=== PATIENT | female | born 1940 | race Caucasian/White ===

== ENCOUNTER → 2016-12-23 | Outpatient (CLI) | payer MEDICARE, SELFPAY ==
[~2016-12-23] MED LIST: CELEXA 20MG TAB20 MG PO; ELIQUIS5 MG PO; IMDUR ER TAB 6060 MG PO; LASIX20 MG PO; LEVAQUIN500 MG PO; LEVSIN TAB 00.125 MG PO; LOSARTAN-HCTZ1 EAC1 PO; NOVOLOG 10100 UNITS1 INJ; PRAVASTATIN SOD40 MG PO; PRILOSEC OTC20 MG PO; RANEXA500 MG PO; TOPROL XL 25 MG25 MG PO; TOUJEO SQ; TYLENOL W/CODEIN1 E1 PO
== END ==
LOC: ECHO 12-22 12:30
DX: I25.10 Atherosclerotic heart disease of native coronary artery without angina pectoris (principal); I49.5 Sick sinus syndrome; I50.32 Chronic diastolic (congestive) heart failure; I35.0 Nonrheumatic aortic (valve) stenosis
CPT/HCPCS: ECHO; 93306

== ENCOUNTER → 2016-12-27 | Outpatient (CLI) | payer MEDICARE, SELFPAY ==
[2016-12-27 13:39] LABS: HEMOGLOBIN 11.2 gm/dl (12.3-15.3); RED BLOOD COUNT 3.94 M/UL (4.00-5.10); WHITE BLOOD COUNT 9.9 K/UL (4.5-11.0)
== END ==
LOC: LAB 12:44
PROVIDERS: Internal Medicine Cardiovascular Disease
DX: Z45.010 Encounter for checking and testing of cardiac pacemaker pulse generator [battery] (principal); I49.5 Sick sinus syndrome; I25.10 Atherosclerotic heart disease of native coronary artery without angina pectoris; I11.0 Hypertensive heart disease with heart failure; I50.32 Chronic diastolic (congestive) heart failure
CPT/HCPCS: 36415; 71020; 80048; 85025

== ENCOUNTER → 2016-12-29 | Outpatient (CLI) | payer MEDICARE, SELFPAY ==
[~2016-12-29] VITALS: Ht 167.6 cm; Wt 61.7 kg
== END ==
LOC: CATH 07:04
DX: Z45.010 Encounter for checking and testing of cardiac pacemaker pulse generator [battery] (principal); T82.110A Breakdown (mechanical) of cardiac electrode, initial encounter; I25.10 Atherosclerotic heart disease of native coronary artery without angina pectoris; I10 Essential (primary) hypertension; E11.9 Type 2 diabetes mellitus without complications; E78.5 Hyperlipidemia, unspecified; Y71.8 Miscellaneous cardiovascular devices associated with adverse incidents, not elsewhere classified; I49.5 Sick sinus syndrome; I50.32 Chronic diastolic (congestive) heart failure; I25.119 Atherosclerotic heart disease of native coronary artery with unspecified angina pectoris; Z95.5 Presence of coronary angioplasty implant and graft; Z95.1 Presence of aortocoronary bypass graft; Z87.891 Personal history of nicotine dependence; Z88.5 Allergy status to narcotic agent; Z88.8 Allergy status to other drugs, medicaments and biological substances; Z79.82 Long term (current) use of aspirin; Z79.4 Long term (current) use of insulin; Z79.899 Other long term (current) drug therapy
CPT/HCPCS: ECHO; 82962; 93306; 99152; 99153; C1785; J1200; J2250; J3010; J3370; J7040; J7050

== ENCOUNTER → 2020-07-23 | Outpatient (CLI) | payer MEDICARE, OTHER ==
[~2020-07-23] MED LIST changes: +ACTOS30 MG PO; +AMOX TR-K CLV1 EAC4 PO; +ASPIRIN CHEWABL81 MG PO; +ASPIRIN EC81 MG PO; +DECADRON6 MG PO; +ELIQUIS 2.5 MG2.5 MG PO; +GLUCOTROL5 MG PO; +LEVEMIR100 UNIT/1 SQ; +LOPRESSOR 25 MG25 MG PO; +NEURONTIN 300300 MG PO; +NORCO 5-325 TA1 EACH PO; +NORVASC2.5 MG PO; +NOVOLOG100 UNIT/1 SQ; -TOPROL XL 25 MG25 MG PO; +ULTRAM50 MG PO; +VIBRAMYCIN100 MG PO
== END ==
LOC: LAB 15:58
PROVIDERS: Internal Medicine Nephrology
DX: N18.30 Chronic kidney disease, stage 3 unspecified (principal)
CPT/HCPCS: 36415; 80053; 82570; 84156

== ENCOUNTER → 2020-10-15 | Outpatient (CLI) | payer OTHER | LOC: LAB 15:37 | PROVIDERS: Internal Medicine Nephrology | DX: N18.30 Chronic kidney disease, stage 3 unspecified (principal) | CPT/HCPCS: 36415; 80053; 82570; 84156 ==

== ENCOUNTER → 2021-01-14 | Outpatient (CLI) | payer OTHER ==
[~2021-01-14] MED LIST changes: +KEFLEX750 MG PO
== END ==
LOC: LAB 14:21
PROVIDERS: Internal Medicine Nephrology
DX: N18.30 Chronic kidney disease, stage 3 unspecified (principal)
CPT/HCPCS: 36415; 80053; 82570; 84156

== ENCOUNTER 2021-03-27 19:20 | Emergency (ER) | payer OTHER ==
[~2021-03-27 19:20] MED LIST changes: -KEFLEX750 MG PO
[2021-03-27 20:03] LABS: HEMOGLOBIN 11.3 gm/dl (12.3-15.3); RED BLOOD COUNT 4.25 M/UL (4.00-5.10); WHITE BLOOD COUNT 7.9 K/UL (4.5-11.0)
[2021-03-27] MEDS ORDERED: ASPIRIN CHEWABL81 MG PO (21:39)
[2021-03-27] MEDS ORDERED: KEFLEX750 MG PO (21:39)
== END 2021-03-27 22:20 | disposition home or self-care (01) ==
LOC: ER1 19:20
PROVIDERS: Family Medicine
DX: L08.9 Local infection of the skin and subcutaneous tissue, unspecified (principal); E11.9 Type 2 diabetes mellitus without complications; I10 Essential (primary) hypertension
CPT/HCPCS: 71045; 73660; 80053; 85025; 85652; 86140; 93005; 99283

== ENCOUNTER → 2021-05-01 | Outpatient (CLI) | payer OTHER ==
[~2021-05-01] MED LIST changes: +KEFLEX750 MG PO
== END ==
LOC: EXRD 04-27 14:00 → US 04-27 14:00 → EXRD 11:15
DX: I73.9 Peripheral vascular disease, unspecified (principal); L97.519 Non-pressure chronic ulcer of other part of right foot with unspecified severity
CPT/HCPCS: 93925

== ENCOUNTER 2021-05-20 07:19 | Inpatient (IN) | payer OTHER ==
[~2021-05-20] VITALS: Ht 170.2 cm; Wt 60.3 kg
[2021-05-20 08:07] LABS: HEMOGLOBIN 10.4 gm/dl (12.3-15.3); RED BLOOD COUNT 4.06 M/UL (4.00-5.10)
[2021-05-21 03:00] LABS: HEMOGLOBIN 9.1 gm/dl (12.3-15.3)
[2021-05-21 03:01] LABS: RED BLOOD COUNT 3.65 M/UL (4.00-5.10); WHITE BLOOD COUNT 8.2 K/UL (4.5-11.0)
[2021-05-22 04:24] LABS: HEMOGLOBIN 8.8 gm/dl (12.3-15.3); RED BLOOD COUNT 3.48 M/UL (4.00-5.10); WHITE BLOOD COUNT 9.2 K/UL (4.5-11.0)
[2021-05-23 02:55] LABS: HEMOGLOBIN 8.8 gm/dl (12.3-15.3); RED BLOOD COUNT 3.51 M/UL (4.00-5.10); WHITE BLOOD COUNT 8.8 K/UL (4.5-11.0)
[2021-05-24 02:53] LABS: HEMOGLOBIN 8.4 gm/dl (12.3-15.3); RED BLOOD COUNT 3.33 M/UL (4.00-5.10); WHITE BLOOD COUNT 10.6 K/UL (4.5-11.0)
[2021-05-25 03:09] LABS: HEMOGLOBIN 8.5 gm/dl (12.3-15.3); RED BLOOD COUNT 3.38 M/UL (4.00-5.10); WHITE BLOOD COUNT 9.6 K/UL (4.5-11.0)
[2021-05-26 04:39] LABS: HEMOGLOBIN 8.6 gm/dl (12.3-15.3); RED BLOOD COUNT 3.46 M/UL (4.00-5.10); WHITE BLOOD COUNT 9.6 K/UL (4.5-11.0)
[2021-05-26] MEDS ORDERED: FERROUS SULFAT325 M2 PO (13:02)
[2021-05-26] MEDS ORDERED: CLOPIDOGREL75 MG PO (13:02)
[2021-05-26] MEDS ORDERED: ELIQUIS 5 MG TAB5 MG PO (13:02)
== END 2021-05-26 14:30 | disposition home health service (06) | DRG 252 ==
LOC: CATH 07:19 → PROG CARE 15:32 → CATH 15:59 → PROG CARE 16:01
PROVIDERS: Internal Medicine Cardiovascular Disease; Podiatrist Foot & Ankle Surgery; ADMIT Internal Medicine
PROC: 047M3Z1 Dilation of Right Popliteal Artery using Drug-Coated Balloon, Percutaneous Approach (ICD-10-PCS; 2021-05-20)
PROC: 4A033B1 Measurement of Arterial Pressure, Peripheral, Percutaneous Approach (ICD-10-PCS; 2021-05-20)
PROC: B44FZZ3 Ultrasonography of Right Lower Extremity Arteries, Intravascular (ICD-10-PCS; 2021-05-20)
PROC: 0Y6V0Z0 Detachment at Right 4th Toe, Complete, Open Approach (ICD-10-PCS; 2021-05-22)
PROC: 0HRMXK3 Replacement of Right Foot Skin with Nonautologous Tissue Substitute, Full Thickness, External Approach (ICD-10-PCS; principal; 2021-05-22 16:00)
PROC: 02HV33Z Insertion of Infusion Device into Superior Vena Cava, Percutaneous Approach (ICD-10-PCS; 2021-05-25)
PROC: B548ZZA Ultrasonography of Superior Vena Cava, Guidance (ICD-10-PCS; 2021-05-25)
DX: E11.52 Type 2 diabetes mellitus with diabetic peripheral angiopathy with gangrene (principal); A48.0 Gas gangrene; I44.2 Atrioventricular block, complete; L03.115 Cellulitis of right lower limb; Z20.822 Contact with and (suspected) exposure to COVID-19; I13.0 Hypertensive heart and chronic kidney disease with heart failure and stage 1 through stage 4 chronic kidney disease, or unspecified chronic kidney disease; I50.32 Chronic diastolic (congestive) heart failure; M86.8X7 Other osteomyelitis, ankle and foot; E78.5 Hyperlipidemia, unspecified; N18.30 Chronic kidney disease, stage 3 unspecified; I25.10 Atherosclerotic heart disease of native coronary artery without angina pectoris; E11.22 Type 2 diabetes mellitus with diabetic chronic kidney disease; F17.210 Nicotine dependence, cigarettes, uncomplicated; K58.9 Irritable bowel syndrome, unspecified; I48.91 Unspecified atrial fibrillation; L97.519 Non-pressure chronic ulcer of other part of right foot with unspecified severity; I49.5 Sick sinus syndrome; I08.3 Combined rheumatic disorders of mitral, aortic and tricuspid valves; I27.20 Pulmonary hypertension, unspecified; E78.00 Pure hypercholesterolemia, unspecified; M06.9 Rheumatoid arthritis, unspecified; E11.621 Type 2 diabetes mellitus with foot ulcer; Z96.1 Presence of intraocular lens; E11.628 Type 2 diabetes mellitus with other skin complications; D63.1 Anemia in chronic kidney disease; Z79.4 Long term (current) use of insulin; I82.401 Acute embolism and thrombosis of unspecified deep veins of right lower extremity; Z95.0 Presence of cardiac pacemaker; Z79.01 Long term (current) use of anticoagulants; Z86.010 Personal history of colon polyps; Z86.39 Personal history of other endocrine, nutritional and metabolic disease; Z95.5 Presence of coronary angioplasty implant and graft; Z95.1 Presence of aortocoronary bypass graft; Z98.890 Other specified postprocedural states; Z88.8 Allergy status to other drugs, medicaments and biological substances; Z79.82 Long term (current) use of aspirin; Z98.42 Cataract extraction status, left eye; Z98.41 Cataract extraction status, right eye; Z90.710 Acquired absence of both cervix and uterus; Z82.49 Family history of ischemic heart disease and other diseases of the circulatory system; Z82.62 Family history of osteoporosis; Z83.3 Family history of diabetes mellitus; Z81.1 Family history of alcohol abuse and dependence; Z82.61 Family history of arthritis; Z82.5 Family history of asthma and other chronic lower respiratory diseases
CPT/HCPCS: 36415; 36600; 71045; 73630; 75630; 80048; 80202; 82550; 82962; 83036; 83540; 83550; 83605; 83735; 85025; 85027; 85347; 85610; 85652; 85730; 86140; 87040; 87070; 87077; 87186; 87205; 93005; 99152; 99153; C1725; C1894; C2623; J1100; J1335; J1644; J2185; J2250; J2270; J2405; J2704; J2795; J3010; J3370; J7030; J7040; J7050; J7120; Q4133; Q9965

== ENCOUNTER → 2021-06-02 | Outpatient (CLI) | payer OTHER ==
[~2021-06-02] MED LIST changes: +CLOPIDOGREL75 MG PO; +ELIQUIS 5 MG TAB5 MG PO; +FERROUS SULFAT325 M2 PO; +LIDOCAINE1 EAC1 TP
[2021-06-02 17:58] LABS: HEMOGLOBIN 9.4 gm/dl (12.3-15.3); RED BLOOD COUNT 3.83 M/UL (4.00-5.10); WHITE BLOOD COUNT 7.7 K/UL (4.5-11.0)
== END ==
LOC: LBRF 17:36 → VNA 17:36
PROVIDERS: Podiatrist Foot & Ankle Surgery
DX: Z79.2 Long term (current) use of antibiotics (principal)
CPT/HCPCS: 80053; 85025; 85652; 86140

== ENCOUNTER 2021-06-03 12:23 | Emergency (ER) | payer OTHER ==
[~2021-06-03 12:23] MED LIST changes: -LIDOCAINE1 EAC1 TP
[2021-06-03 14:59] LABS: RED BLOOD COUNT 3.97 M/UL (4.00-5.10)
[2021-06-03] MEDS ORDERED: LIDOCAINE1 EAC1 TP (16:07)
== END 2021-06-03 16:30 | disposition home or self-care (01) ==
LOC: ER1 12:23
PROVIDERS: Emergency Medicine
DX: S22.31XA Fracture of one rib, right side, initial encounter for closed fracture (principal); I50.9 Heart failure, unspecified; I48.91 Unspecified atrial fibrillation; E11.9 Type 2 diabetes mellitus without complications; Z95.0 Presence of cardiac pacemaker; W19.XXXA Unspecified fall, initial encounter
CPT/HCPCS: 70450; 71250; 72128; 72131; 80053; 81001; 82550; 82553; 83874; 84484; 85025; 93005; 99284

== ENCOUNTER 2021-06-06 12:30 | Emergency (ER) | payer OTHER ==
[~2021-06-06 12:30] MED LIST changes: -LASIX20 MG PO; +LASIX40 MG PO; +LIDOCAINE1 EAC1 TP; -NORVASC2.5 MG PO
[2021-06-06 13:34] LABS: HEMOGLOBIN 9.2 gm/dl (12.3-15.3); RED BLOOD COUNT 3.66 M/UL (4.00-5.10); WHITE BLOOD COUNT 8.3 K/UL (4.5-11.0)
[2021-06-06 13:53] LABS: BUN/CREATININE RATIO 23 (0-10)
[2021-06-06] MEDS ORDERED: AUGMENTIN 875-1 EACH PO (15:11)
[2021-06-06] MEDS ORDERED: CATAPRES 0.1MG0.1 MG PO (17:54)
[2021-06-06] MEDS ORDERED: ASPIRIN CHEWABL81 MG PO (17:54)
[2021-06-06] MEDS ORDERED: ZYRTEC10 M3 PO (17:54)
[2021-06-06] MEDS ORDERED: BACLOFEN10 MG PO (17:54)
[2021-06-06] MEDS ORDERED: FLONASE 0.05% N16 GM (17:54)
== END 2021-06-06 15:56 | disposition home or self-care (01) ==
LOC: ER1 12:30
PROVIDERS: Emergency Medicine
DX: R44.3 Hallucinations, unspecified (principal); T40.605A Adverse effect of unspecified narcotics, initial encounter; T36.95XA Adverse effect of unspecified systemic antibiotic, initial encounter; R41.0 Disorientation, unspecified; I48.91 Unspecified atrial fibrillation; E11.9 Type 2 diabetes mellitus without complications; Z95.1 Presence of aortocoronary bypass graft; Z90.49 Acquired absence of other specified parts of digestive tract; Z89.429 Acquired absence of other toe(s), unspecified side
CPT/HCPCS: 80053; 80307; 81001; 82140; 82550; 82553; 83874; 84484; 85025; 96374; 99284; J0295; J0696

== ENCOUNTER 2021-06-06 17:32 | Inpatient (IN) | payer OTHER ==
[~2021-06-06] VITALS: Ht 160 cm; Wt 58.0 kg
[~2021-06-06 17:32] MED LIST changes: +AUGMENTIN 875-1 EACH PO
[2021-06-06] MEDS ORDERED: CATAPRES 0.1MG0.1 MG PO (17:54)
[2021-06-06] MEDS ORDERED: ASPIRIN CHEWABL81 MG PO (17:54)
[2021-06-06] MEDS ORDERED: BACLOFEN10 MG PO (17:54)
[2021-06-06] MEDS ORDERED: ZYRTEC10 M3 PO (17:54)
[2021-06-06] MEDS ORDERED: FLONASE 0.05% N16 GM (17:54)
[2021-06-06 18:02] LABS: HEMOGLOBIN 9.5 gm/dl (12.3-15.3); RED BLOOD COUNT 3.76 M/UL (4.00-5.10); WHITE BLOOD COUNT 7.1 K/UL (4.5-11.0)
[2021-06-06 18:32] LABS: BUN/CREATININE RATIO 24 (0-10)
[2021-06-07 08:16] LABS: HEMOGLOBIN 8.8 gm/dl (12.3-15.3); RED BLOOD COUNT 3.61 M/UL (4.00-5.10); WHITE BLOOD COUNT 7.8 K/UL (4.5-11.0)
[2021-06-08 07:11] LABS: HEMOGLOBIN 8.6 gm/dl (12.3-15.3); RED BLOOD COUNT 3.42 M/UL (4.00-5.10); WHITE BLOOD COUNT 7.8 K/UL (4.5-11.0)
[2021-06-08] MEDS ORDERED: NOVOLOG FL100 UNIT/1 SQ (15:27)
[2021-06-08] MEDS ORDERED: LOSARTAN POTASS50 MG PO (15:28)
[2021-06-08] MEDS ORDERED: ELIQUIS5 MG PO (15:28)
[2021-06-08] MEDS ORDERED: NORVASC2.5 MG PO (16:04)
[2021-06-09 09:16] LABS: HEMOGLOBIN 8.5 gm/dl (12.3-15.3); RED BLOOD COUNT 3.36 M/UL (4.00-5.10); WHITE BLOOD COUNT 7.5 K/UL (4.5-11.0)
--- NOTE | 2021-06-09 15:29 | NUR ---
PATIENT RETURNED FROM PROCEDURE, SURGICAL VITALS BEGAN PER POLICY. PATIENT STILL APPEARS TO BE LETHARGIC BUT RESPONDS TO TACTILE STIMULI. NO S/SX OF PAIN OR DISTRESS AT PRESENT. BED LOCKED AND LOW. CALL LIGHT WITHIN REACH. RN NOTED RADIOLOGIST MADE A WRITTEN ORDER TO KEEP PATIENT SUPINE FOR TWO HOURS POSTOP AND ENCOURAGE PO FLUIDS.
[2021-06-09 15:35] LABS: CRYPTOCOCCUS NEOFORMANS/GATTII Not Detected (Negative); CYTOMEGALOVIRUS Not Detected (Negative); ENTEROVIRUS Not Detected (Negative); ESCHERICHIA COLI K1 Not Detected (Negative); HAEMOPHILUS INFLUENZAE Not Detected (Negative); HERPES SIMPLEX VIRUS 1 Not Detected (Negative); HERPES SIMPLEX VIRUS 2 Not Detected (Negative); HUMAN HERPESVIRUS 6 Not Detected (Negative); HUMAN PARECHOVIRUS Not Detected (Negative); LISTERIA MONOCYTOGENES Not Detected (Negative); NEISERRIA MENINGITIDIS Not Detected (Negative); STREPTOCOCCUS AGALACTIAE Not Detected (Negative); STREPTOCOCCUS PNEUMONIAE Not Detected (Negative); VARICELLA ZOSTER VIRUS Not Detected (Negative)
[2021-06-09 16:11] LABS: GLUCOSE,CSF 169 mg/dL (50-80); TOTAL PROTEIN,CSF 54 mg/dL (20-45)
[2021-06-09 16:14] LABS: RBC (AUTOMATED) 1 10^6 (0); WBC (AUTOMATED 1 10^3 (0-5); WBC (AUTOMATED 3 10^3 (0-5)
--- NOTE | 2021-06-10 00:08 | NUR ---
during assessment responds to painful stimuli only. BG 85, will recheck and continue to monitor. 0000 BG recheck was 95, bp 172/69. gave Hydralazine 5mg. Will continue to monitor her blood glucose and bp. Oral care was done and pt was able to tell us her name, where she was and what year it was correctly.
[2021-06-10 10:12] LABS: HEMOGLOBIN 9.3 gm/dl (12.3-15.3); WHITE BLOOD COUNT 8.2 K/UL (4.5-11.0)
[2021-06-10 10:48] LABS: RED BLOOD COUNT 3.71 M/UL (4.00-5.10)
[2021-06-11 07:59] LABS: HEMOGLOBIN 8.7 gm/dl (12.3-15.3); RED BLOOD COUNT 3.55 M/UL (4.00-5.10); WHITE BLOOD COUNT 6.8 K/UL (4.5-11.0)
[2021-06-12 05:59] LABS: HEMOGLOBIN 8.7 gm/dl (12.3-15.3); RED BLOOD COUNT 3.58 M/UL (4.00-5.10); WHITE BLOOD COUNT 7.3 K/UL (4.5-11.0)
[2021-06-13 04:33] LABS: HEMOGLOBIN 8.7 gm/dl (12.3-15.3); RED BLOOD COUNT 3.47 M/UL (4.00-5.10); WHITE BLOOD COUNT 7.1 K/UL (4.5-11.0)
[2021-06-14 08:42] LABS: HEMOGLOBIN 9.6 gm/dl (12.3-15.3); WHITE BLOOD COUNT 6.6 K/UL (4.5-11.0)
[2021-06-14 08:50] LABS: RED BLOOD COUNT 3.94 M/UL (4.00-5.10)
[2021-06-14 09:15] LABS: BUN/CREATININE RATIO 14 (0-10)
[2021-06-14] MEDS ORDERED: LOPRESSOR 25 MG25 MG PO (18:25)
[2021-06-14] MEDS ORDERED: ASPIRIN81 MG PO (18:25)
== END 2021-06-14 19:52 | disposition home or self-care (01) | DRG 92 ==
LOC: ER1 17:32 → CDU 22:13 → M/S 22:13
PROVIDERS: Family Medicine; Internal Medicine; Internal Medicine Nephrology; ADMIT Internal Medicine
PROC: B24BZZZ Ultrasonography of Heart with Aorta (ICD-10-PCS; 2021-06-08)
PROC: 4A00X4Z Measurement of Central Nervous Electrical Activity, External Approach (ICD-10-PCS; principal; 2021-06-09)
DX: G92.8 Other toxic encephalopathy (principal); Z20.822 Contact with and (suspected) exposure to COVID-19; S22.31XA Fracture of one rib, right side, initial encounter for closed fracture; R44.3 Hallucinations, unspecified; I13.0 Hypertensive heart and chronic kidney disease with heart failure and stage 1 through stage 4 chronic kidney disease, or unspecified chronic kidney disease; I50.32 Chronic diastolic (congestive) heart failure; N17.9 Acute kidney failure, unspecified; I25.10 Atherosclerotic heart disease of native coronary artery without angina pectoris; I27.20 Pulmonary hypertension, unspecified; I49.5 Sick sinus syndrome; E11.22 Type 2 diabetes mellitus with diabetic chronic kidney disease; R29.6 Repeated falls; I48.91 Unspecified atrial fibrillation; I08.3 Combined rheumatic disorders of mitral, aortic and tricuspid valves; E11.51 Type 2 diabetes mellitus with diabetic peripheral angiopathy without gangrene; N18.30 Chronic kidney disease, stage 3 unspecified; D63.1 Anemia in chronic kidney disease; R53.81 Other malaise; W18.30XA Fall on same level, unspecified, initial encounter; Y93.9 Activity, unspecified; Z79.01 Long term (current) use of anticoagulants; Z90.710 Acquired absence of both cervix and uterus; Z89.421 Acquired absence of other right toe(s); Z95.5 Presence of coronary angioplasty implant and graft; Z90.49 Acquired absence of other specified parts of digestive tract; Z95.1 Presence of aortocoronary bypass graft; Z79.82 Long term (current) use of aspirin
CPT/HCPCS: ECHO; 36415; 70450; 71101; 71111; 73522; 80048; 80053; 81001; 82550; 82553; 82607; 82746; 82945; 82962; 83540; 83550; 83605; 83735; 83874; 83880; 84100; 84132; 84157; 84439; 84443; 84484; 85025; 85027; 85610; 85652; 85730; 86140; 87040; 87483; 89051; 93306; 93880; 94760; 95816; 97110-GP-CQ; 97161; 97166; 97530-GP-CQ; 99284; J0295; J0360; J0696; J1630; J1650; J2405; J2543; J3475; J3480; J7030; P9047; Q0177; U0002

== ENCOUNTER 2021-11-02 20:07 | Emergency (ER) | payer OTHER ==
[~2021-11-02 20:07] MED LIST changes: +ASPIRIN81 MG PO; +BACLOFEN10 MG PO; +CATAPRES 0.1MG0.1 MG PO; +FLONASE 0.05% N16 GM; +LOSARTAN POTASS50 MG PO; +NORVASC2.5 MG PO; +NOVOLOG FL100 UNIT/1 SQ; +ZYRTEC10 M3 PO
[2021-11-03] MEDS ORDERED: PERCOCET 5/325 T1 EA PO (00:52)
== END 2021-11-03 01:16 | disposition home or self-care (01) ==
LOC: ER1 20:07
DX: S42.291A Other displaced fracture of upper end of right humerus, initial encounter for closed fracture (principal); S42.251A Displaced fracture of greater tuberosity of right humerus, initial encounter for closed fracture; S42.261A Displaced fracture of lesser tuberosity of right humerus, initial encounter for closed fracture; S12.300A Unspecified displaced fracture of fourth cervical vertebra, initial encounter for closed fracture; I11.9 Hypertensive heart disease without heart failure; I48.91 Unspecified atrial fibrillation; W19.XXXA Unspecified fall, initial encounter; Y92.009 Unspecified place in unspecified non-institutional (private) residence as the place of occurrence of the external cause
CPT/HCPCS: 70450; 72125; 72128; 72131; 73030; 73060; 96374; 96375; 99284; J2270; J2405

== ENCOUNTER 2021-11-09 19:05 | Emergency (ER) | payer OTHER ==
[~2021-11-09 19:05] MED LIST changes: +PERCOCET 5/325 T1 EA PO
[2021-11-09 19:35] LABS: RED BLOOD COUNT 4.25 M/UL (4.00-5.10); WHITE BLOOD COUNT 7.5 K/UL (4.5-11.0)
[2021-11-09 20:11] LABS: BUN/CREATININE RATIO 23 (0-10)
== END 2021-11-10 00:57 | disposition home or self-care (01) ==
LOC: ER1 19:05
PROVIDERS: Student in an Organized Health Care Education/Training Program
DX: R41.0 Disorientation, unspecified (principal); Z76.0 Encounter for issue of repeat prescription; I51.9 Heart disease, unspecified; E11.9 Type 2 diabetes mellitus without complications; Z95.0 Presence of cardiac pacemaker
CPT/HCPCS: 70450; 71045; 72125; 80053; 81001; 82140; 82550; 82553; 83605; 84484; 85025; 99285; J1885

== ENCOUNTER 2022-03-20 16:41 | Emergency (ER) | payer OTHER ==
[2022-03-20 17:27] LABS: HEMOGLOBIN 12.1 gm/dl (12.3-15.3); RED BLOOD COUNT 4.43 M/UL (4.00-5.10); WHITE BLOOD COUNT 8.2 K/UL (4.5-11.0)
[2022-03-20] MEDS ORDERED: AZITHROMYCIN250 MG PO (18:13)
== END 2022-03-20 18:16 | disposition home or self-care (01) ==
LOC: ER1 16:41
PROVIDERS: Emergency Medicine
DX: U07.1 COVID-19 (principal); I11.0 Hypertensive heart disease with heart failure; I50.9 Heart failure, unspecified; E11.9 Type 2 diabetes mellitus without complications; Z95.0 Presence of cardiac pacemaker
CPT/HCPCS: 71045; 80053; 84484; 85025; 86140; 93005; 99284; U0002